=== PATIENT | female | born 1935 | race Caucasian/White ===

== ENCOUNTER 2019-11-20 09:43 | Inpatient (IN) ==
[2019-11-20] MEDS ORDERED: Ondansetron ODT 4 MG TAB.RAPDIS SL PRN (14:59)
[2019-11-20] MEDS: *HR* HYDROcodone/Acet 5/325 mg TABLET PO PRN (20:45)
[2019-11-20] MEDS: Melatonin 3 MG TABLET PO SCH (20:45)
[2019-11-20] MEDS: Sennosides/Docusate Sodium TABLET PO SCH (20:46)
[2019-11-21] MEDS: *HR* Enoxaparin 40 MG/0.4 ML SYRINGE SQ SCH (04:56)
[2019-11-21 05:06] LABS: Hematocrit 34.4 % (35.3-44.9); Hemoglobin 11.1 g/dL (11.5-15.4); Mean Corpuscular HGB Conc 32.3 g/dL (31.6-35.5); Mean Corpuscular Hemoglobin 30.4 pg (28.0-33.3); Mean Corpuscular Volume 94.2 fL (83.0-100.0); Mean Platelet Volume 10.1 fL (9.4-12.4); Platelet Count 249 K/mcL (140-400); Red Blood Count 3.65 M/mcL (3.82-4.97); Red Cell Distribution Width 13.2 % (11.5-14.5)
[2019-11-21 05:22] LABS: Alanine Aminotransferase 18 Units/L (7-52); Albumin 3.5 g/dL (3.5-5.7); Albumin/Globulin Ratio 1.3 (1.1-2.2); Alkaline Phosphatase 48 Units/L (34-104); Aspartate Amino Transferase 21 Units/L (13-39); BUN/Creatinine Ratio 20 (6-26); Bilirubin,Total 0.9 mg/dL (0.3-1.0); Blood Urea Nitrogen 18 mg/dL (8-23); Calcium 9.7 mg/dL (8.6-10.3); Carbon Dioxide 33 mEq/L (23-29); Chloride 100 mEq/L (98-107); Globulin 2.7 g/dL (2.4-3.5); Glucose 132 mg/dL (70-105); Osmolality,Calculated 292 (280-300); Potassium 3.6 mEq/L (3.5-5.1); Sodium 139 mEq/L (136-145); Total Protein 6.2 g/dL (6.4-8.9); eGFR For African Americans > 60 (> 60); eGFR For Non-African Americans 58 (> 60)
[2019-11-21] MEDS: Lisinopril 20 MG TABLET PO SCH (08:05)
[2019-11-21] MEDS: amLODIPine 5 MG TABLET PO SCH (08:05)
[2019-11-21] MEDS: Sennosides/Docusate Sodium TABLET PO SCH ×2 (08:06→21:54)
[2019-11-21] MEDS: *HR* HYDROcodone/Acet 5/325 mg TABLET PO PRN (21:59)
[2019-11-21] MEDS: Melatonin 3 MG TABLET PO SCH (21:59)
[2019-11-22] MEDS: *HR* Enoxaparin 40 MG/0.4 ML SYRINGE SQ SCH (06:14)
[2019-11-22] MEDS: *HR* HYDROcodone/Acet 5/325 mg TABLET PO PRN ×2 (06:14→20:12)
[2019-11-22] MEDS: Lisinopril 20 MG TABLET PO SCH (08:22)
[2019-11-22] MEDS: Sennosides/Docusate Sodium TABLET PO SCH ×2 (08:22→20:07)
[2019-11-22] MEDS: amLODIPine 5 MG TABLET PO SCH (08:22)
[2019-11-22] MEDS: Melatonin 3 MG TABLET PO SCH (20:12)
[2019-11-23] MEDS: Sennosides/Docusate Sodium TABLET PO SCH ×2 (08:08→20:30)
[2019-11-23] MEDS: Lisinopril 20 MG TABLET PO SCH (08:09)
[2019-11-23] MEDS: amLODIPine 5 MG TABLET PO SCH (08:09)
[2019-11-23] MEDS: *HR* Enoxaparin 40 MG/0.4 ML SYRINGE SQ SCH (08:10)
[2019-11-23] MEDS: *HR* HYDROcodone/Acet 5/325 mg TABLET PO PRN ×2 (08:37→20:30)
[2019-11-23] MEDS: Melatonin 3 MG TABLET PO SCH (20:30)
[2019-11-24] MEDS: *HR* Enoxaparin 40 MG/0.4 ML SYRINGE SQ SCH (05:48)
[2019-11-24] MEDS: Lisinopril 20 MG TABLET PO SCH (08:18)
[2019-11-24] MEDS: Sennosides/Docusate Sodium TABLET PO SCH ×2 (08:19→20:46)
[2019-11-24] MEDS: amLODIPine 5 MG TABLET PO SCH (08:19)
[2019-11-24] MEDS: *HR* HYDROcodone/Acet 5/325 mg TABLET PO PRN (08:25)
[2019-11-24] MEDS: Melatonin 3 MG TABLET PO SCH (20:45)
[2019-11-24] MEDS: Acetaminophen 325 MG TABLET PO PRN (20:46)
[2019-11-25] MEDS: *HR* Enoxaparin 40 MG/0.4 ML SYRINGE SQ SCH (05:32)
[2019-11-25] MEDS ORDERED: Sennosides/Docusate Sodium TABLET ONE (08:28)
[2019-11-25] MEDS ORDERED: amLODIPine 5 MG TABLET ONE (08:28)
[2019-11-25] MEDS ORDERED: Lisinopril 20 MG TABLET ONE (08:28)
[2019-11-25] MEDS: amLODIPine 5 MG TABLET PO SCH (16:22)
[2019-11-25] MEDS: Lisinopril 20 MG TABLET PO SCH (16:23)
[2019-11-25] MEDS: Sennosides/Docusate Sodium TABLET PO SCH ×2 (16:23→20:48)
[2019-11-25] MEDS: Melatonin 3 MG TABLET PO SCH (20:48)
[2019-11-25] MEDS: *HR* HYDROcodone/Acet 5/325 mg TABLET PO PRN (20:48)
[2019-11-26] MEDS: *HR* Enoxaparin 40 MG/0.4 ML SYRINGE SQ SCH (05:10)
[2019-11-26 05:25] LABS: Hematocrit 34.6 % (35.3-44.9); Hemoglobin 11.1 g/dL (11.5-15.4); Mean Corpuscular HGB Conc 32.1 g/dL (31.6-35.5); Mean Corpuscular Hemoglobin 30.5 pg (28.0-33.3); Mean Corpuscular Volume 95.1 fL (83.0-100.0); Mean Platelet Volume 9.8 fL (9.4-12.4); Platelet Count 292 K/mcL (140-400); Red Blood Count 3.64 M/mcL (3.82-4.97); Red Cell Distribution Width 13.8 % (11.5-14.5); White Blood Count 8.3 K/mcL (4.3-11.1)
[2019-11-26 05:45] LABS: Alanine Aminotransferase 29 Units/L (7-52); Albumin 3.8 g/dL (3.5-5.7); Albumin/Globulin Ratio 1.7 (1.1-2.2); Alkaline Phosphatase 52 Units/L (34-104); Aspartate Amino Transferase 23 Units/L (13-39); BUN/Creatinine Ratio 20 (6-26); Bilirubin,Total 0.7 mg/dL (0.3-1.0); Blood Urea Nitrogen 19 mg/dL (8-23); Calcium 9.5 mg/dL (8.6-10.3); Carbon Dioxide 30 mEq/L (23-29); Chloride 101 mEq/L (98-107); Globulin 2.3 g/dL (2.4-3.5); Glucose 118 mg/dL (70-105); Osmolality,Calculated 289 (280-300); Potassium 3.3 mEq/L (3.5-5.1); Sodium 138 mEq/L (136-145); Total Protein 6.1 g/dL (6.4-8.9); eGFR For African Americans > 60 (> 60); eGFR For Non-African Americans 56 (> 60)
[2019-11-26] MEDS: Lisinopril 20 MG TABLET PO SCH (08:01)
[2019-11-26] MEDS: amLODIPine 5 MG TABLET PO SCH (08:01)
[2019-11-26] MEDS: Sennosides/Docusate Sodium TABLET PO SCH ×2 (08:01→20:06)
[2019-11-26] MEDS: Acetaminophen 325 MG TABLET PO PRN (20:06)
[2019-11-26] MEDS: Melatonin 3 MG TABLET PO SCH (20:07)
[2019-11-27] MEDS: *HR* Enoxaparin 40 MG/0.4 ML SYRINGE SQ SCH (05:17)
[2019-11-27] MEDS: Sennosides/Docusate Sodium TABLET PO SCH ×2 (08:34→21:36)
[2019-11-27] MEDS: amLODIPine 5 MG TABLET PO SCH (08:35)
[2019-11-27] MEDS: Lisinopril 20 MG TABLET PO SCH (08:35)
[2019-11-27] MEDS: Acetaminophen 325 MG TABLET PO PRN (08:39)
[2019-11-27] MEDS: Melatonin 3 MG TABLET PO SCH (21:36)
[2019-11-27] MEDS: *HR* HYDROcodone/Acet 5/325 mg TABLET PO PRN (21:36)
[2019-11-28] MEDS: *HR* Enoxaparin 40 MG/0.4 ML SYRINGE SQ SCH (05:57)
[2019-11-28] MEDS: *HR* HYDROcodone/Acet 5/325 mg TABLET PO PRN (05:57)
[2019-11-28] MEDS: Sennosides/Docusate Sodium TABLET PO SCH ×2 (08:17→20:14)
[2019-11-28] MEDS: Lisinopril 20 MG TABLET PO SCH (08:17)
[2019-11-28] MEDS: amLODIPine 5 MG TABLET PO SCH (08:17)
[2019-11-28] MEDS: Acetaminophen 325 MG TABLET PO PRN (20:13)
[2019-11-28] MEDS: Melatonin 3 MG TABLET PO SCH (20:14)
[2019-11-29] MEDS: *HR* Enoxaparin 40 MG/0.4 ML SYRINGE SQ SCH (05:35)
[2019-11-29] MEDS: amLODIPine 5 MG TABLET PO SCH (08:32)
[2019-11-29] MEDS: Sennosides/Docusate Sodium TABLET PO SCH (08:33)
[2019-11-29] MEDS: Lisinopril 20 MG TABLET PO SCH (08:33)
[2019-11-29 09:19] VITALS: BP 128/64
== END 2019-11-29 13:23 | disposition home health service (06) | DRG 561 ==
LOC: INPGRE 13:09
PROVIDERS: ADMIT Family Medicine; ATTEND Family Medicine